=== PATIENT | female | born 1980 | race Caucasian/White ===

== ENCOUNTER 2020-07-11 03:46 | Emergency (ER) | payer BC ==
[2020-07-11] MEDS ORDERED: Mag-Al Plus 1200 MG/1200 MG/120 MG/30 ML UDCUP ONE (04:04)
[2020-07-11] MEDS ORDERED: Calcium Carbonate 500 MG ChewTAB ONE (04:04)
[2020-07-11] MEDS ORDERED: diphenhydrAMINE 25 MG CAP ONE (04:20)
[2020-07-11] MEDS ORDERED: Lidocaine Viscous Sol 2% 15 ml UD Cup ONE (04:45)
[2020-07-11] MEDS ORDERED: Acetaminophen/Codeine 30-300mg Tablet ONE (05:43)
== END 2020-07-11 05:54 | disposition home or self-care (01) ==
LOC: NAV ERS 03:46
DX: J02.9 Acute pharyngitis, unspecified (principal)
CPT/HCPCS: 87081; 87430; Q0163